=== PATIENT | male | born 1965 | race Caucasian/White ===

== ENCOUNTER 2019-05-15 05:28 | Day surgery (SDC) | payer OTHER ==
[~2019-05-15] VITALS: Ht 182.9 cm; Wt 129.7 kg
[2019-05-15] MEDS ORDERED: DOLOPHINE HCL5 MG PO (06:37)
[2019-05-15] MEDS ORDERED: BACLOFEN20 M1 PO (06:38)
[2019-05-15] MEDS ORDERED: ULTRAM50 MG PO (06:38)
[2019-05-15] MEDS ORDERED: MECLIZINE HCL25 MG PO (06:39)
[2019-05-15] MEDS ORDERED: LISINOPRIL20 MG PO (06:39)
[2019-05-15] MEDS ORDERED: FOLIC ACID1 MG PO (06:40)
[2019-05-15] MEDS ORDERED: HYDROCHLOROTHIA25 MG PO (06:40)
[2019-05-15] MEDS ORDERED: PROTONIX40 MG PO (06:41)
[2019-05-15] MEDS ORDERED: ZYRTEC10 MG PO (06:41)
[2019-05-15] MEDS ORDERED: COLACE100 MG PO (06:41)
[2019-05-15] MEDS ORDERED: LEVOXYL25 MCG PO (06:42)
[2019-05-15 06:43] VITALS: BP 137/80; Ht 182.9 cm; Wt 129.7 kg
[2019-05-15 06:48] LABS: BASOPHILS 0.2 % (0-2); HEMOGLOBIN 11.8 g/dL (13.5-17.5); LYMPHOCYTES 16.5 % (15-50); MCH 27.2 pg (26.0-34.0); MCHC 32.8 g/dL (31.0-37.0); MCV 82.9 fL (80.0-100.0); MEAN PLATELET VOLUME 10.2 fL (7.4-10.4); MONOCYTES 9.1 % (2-11); NEUTROPHILS 70.2 % (40-80); PLATELET COUNT 195 10x3/uL (130-400); RBC 4.34 10x6/uL (4.20-6.10); RDW 17.7 % (11.5-14.5); WBC 6.3 10x3/uL (4.8-10.8)
[2019-05-15 07:03] LABS: ANION GAP 11.7 mmol/L (8-16); CALCIUM 9.1 mg/dL (8.5-10.1); CARBON DIOXIDE 28.1 mmol/L (21.0-32.0); CREATININE - SERUM 1.2 mg/dL (0.6-1.3); POTASSIUM - SERUM 3.8 mmol/L (3.5-5.1)
--- NOTE | 2019-05-15 11:15 | NUR ---
1110 RETURNED TO 2515, GUARDS AT SIDE, HOB ELEVATED, REMINDED TO KEEP HOB ELEVATED. 1115 DR. TONI HUIZAR, GIVES PT. RESULTS.
--- NOTE | 2019-05-15 11:31 | NUR ---
1130 FL DIET ORDERED.
--- NOTE | 2019-05-15 11:43 | NUR ---
1143 POST CXR DONE PORT.
--- NOTE | 2019-05-15 15:10 | OP ---
PATIENT NAME: SVETA SAMSON MEDICAL RECORD: [id number] :65 LOCATION:D.FORMERLY [facility] [place] ADMISSION DATE: SURGEON: JUAN MUÑOZ MD DATE OF OPERATION: 05/15/2019 PREOPERATIVE DIAGNOSIS: Right cervical lymphadenopathy. 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 PROCEDURE: 1. Excisional right cervical lymph node biopsies. 2. Placement of left infraclavicular PowerPort under fluoroscopic guidance. 3. Immediate surgeon interpretation of the fluoroscopic images. SURGEON: Juan Muñoz MD DISABILITY AIDE: None. BLOOD LOSS: 50 cc. ANESTHESIA: General. COMPLICATIONS: None. The risks, possible complications and alternatives to the procedure were explained to the patient. He elects to proceed. The discussion specifically included, but was not limited to, cranial nerve XI injury or dysfunction, a port infection, the possibility that port could flip or clog off. No radiologist was present for this procedure. The surgeon interpreted the fluoroscopic images. They are kept in the PACS system. The interpretation is dictated within the body of this operative note. OPERATIVE COURSE: The patient was conveyed to the operating room electively on 05/15/2019. General anesthesia was induced by the anesthesia staff. The left chest and both sides of the neck were sterilely prepped and draped. A transverse incision was accomplished inferior to the left clavicle. I dissected down to the pectoralis fascia. A subcutaneous pocket was created in a caudad direction. I then excised some of the adipose tissue from between the skin and the pocket in order to allow for easier access of the port. Under fluoroscopic guidance, I percutaneously accessed the left internal jugular vein in an antegrade fashion. A guidewire passed easily. A skin incision was accomplished around the wire. I then tunneled the PowerPort catheter from the chest incision to the neck incision. Over the guidewire, I placed a dilator sheath. The dilator and wire were removed. Through the sheath, the PowerPort catheter was advanced. The Peel-Away sheath was then removed. The PowerPort catheter was then cut at the chest incision. It was attached to the PowerPort. The locking device was firmly engaged. The PowerPort was placed in the subcutaneous pocket and sutured with 3-point fixation to the underlying pectoralis fascia with 3-0 Prolenes. OPERATIVE REPORT [id number] SAMSON,SVETA I irrigated the port pocket. There was no bleeding. The subdermis was approximated with interrupted 3-0 Vicryls. The skin was approximated with a running intracuticular 4-0 Vicryl. Benzoin and Steri-Strips were applied. I then percutaneously accessed the PowerPort. It accessed easily. It flushed easily and aspirated dark, nonpulsatile blood. An image was obtained over the mediastinum. It revealed that the port catheter has tip at the cavoatrial junction. Another image was obtained over the left lung apex and it revealed no radiographic evidence of complication. The neck incision was closed with single interrupted intracuticular 3-0 Vicryl suture. Attention was then turned to the right side of the neck. The kelly that I had made in the holding area overlying the lymph nodes were easily identifiable. A transverse incision was accomplished. I did not identify the cranial nerve XI during this dissection. I dissected down through the platysma. I identified a pack of adipose tissue and this was excised with the Harmonic scalpel. There appeared to be one lymph node within this pocket of adipose tissue. I noted a very large and very dark lymph node and this was grasped with a [place]. Blunt dissection was performed around the lymph node. The hilum of the lymph node was transected utilizing the Harmonic scalpel. This was sent for frozen section evaluation, which revealed that it was a malignant undifferentiated neoplasm. There was an additional lymph node. This was grasped with a [place]. I bluntly dissected around the lymph node. The hilum of the lymph node was transected with the Harmonic scalpel. I then placed a topical hemostatic agent in this wound. It was closed with interrupted 3-0 Vicryls for the platysma and a running intracuticular 4-0 Vicryl for the skin. Benzoin and Steri-Strips were applied. The patient was then extubated and conveyed to post-anesthesia care unit where he was in stable condition. He will be dismissed back to the snf with a prescription for hydrocodone. There was no need for the patient to follow up with me in the office unless he develops a complication related to this operative procedure. The port can be accessed immediately. TRANSINT:[id number] Voice Confirmation ID: [id number] DOCUMENT ID: [id number] cc: Dr. Butch Jorgensen, Dr. Sacha Lilly, JUAN MUÑOZ MD at 1510 CC: DR. SACHA LILLY and DR. BUTCH JORGENSEN [id number] DICTATION DATE: 05/15/19 1123 DIGITAL RECRUITER: 05/15/19 1158 [facility] [place] 05/15/19 [facility] [address] [place] [address]
== END 2019-05-15 13:05 ==
LOC: D.OPS 05:28
PROVIDERS: ATTEND Surgery
DX: C7A.8 Other malignant neuroendocrine tumors (principal); Z01.812 Encounter for preprocedural laboratory examination